=== PATIENT | male | born 1975 | race Caucasian/White ===

== ENCOUNTER 2018-06-16 10:31 | Emergency (ER) | payer SELFPAY ==
[~2018-06-16] VITALS: Ht 172.7 cm; Wt 73.3 kg
[2018-06-16 10:35] VITALS: Ht 172.7 cm; Wt 73.3 kg
[2018-06-16] MEDS ORDERED: BELLADONNA/PHENOBARBITAL TAB PO STA (14:32)
[2018-06-16] MEDS ORDERED: FAMOTIDINE 20 MG INJ IV STA (14:32)
[2018-06-16] MEDS ORDERED: LIDOCAINE/MYLANTA 40 ML BTL PO STA (14:32)
[2018-06-16] MEDS ORDERED: RANI150T5 PO (15:58)
[2018-06-16] MEDS ORDERED: SUCR1TAB56 PO (16:11)
[2018-06-16] MEDS ORDERED: OMEP20CA16 PO (16:11)
--- NOTE | 2018-06-16 16:14 | ERD ---
ER Documentation Chief Complaint Chief Complaint ABDOMINAL PAIN X 3 DAYS HPI During the patient's encounter translation services were utilized Language: Sinhala Source: In person 42-year-old male no significant past medical history who has been started on ranitidine in the past but self discontinued. The patient presents with several days of right upper quadrant and epigastric abdominal discomfort that is occasionally postprandial and worse with fatty foods. He also notes that the pain is slightly worse to touch and worse with rotational movement. No cough, shortness of breath or chest pain. No exertional symptoms. The pain is moderate at this time. No nausea vomiting or diarrhea. Prior history of appendectomy. ROS All systems reviewed and are negative except as per history of present illness. Medications Home Meds Active Scripts Sucralfate* (Carafate*) 1 Gm Tab, 1 GM PO WITH MEALS PRN for reflux symptoms, #20 TAB Prov:SANJAY SALES MD 06/16/18 Omeprazole* (Omeprazole*) 20 Mg Capsule.dr, 20 MG PO DAILY for 30 Days Prov:SANJAY SALES MD 06/16/18 Reported Medications Ranitidine Hcl* (Ranitidine Hcl*) 150 Mg Tablet, 150 MG PO Q12, #60 TAB 06/16/18 Allergies Allergies: Coded Allergies: No Known Allergy (Unverified , 06/16/18) PMhx/Soc History of Surgery: Yes (APPY) Anesthesia Reaction: No Hx Neurological Disorder: No Hx Respiratory Disorders: No Hx Cardiac Disorders: Yes (HIGH CHOLESTEROL) Hx Psychiatric Problems: No Hx Miscellaneous Medical Probl: Yes (GERD) Hx Alcohol Use: Yes (OCCASIONAL) Hx Substance Use: No Hx Tobacco Use: No Smoking Status: Never smoker FmHx Family History: No diabetes Physical Exam Vitals Vital Signs Date Temp Pulse Resp B/P (MAP) Pulse Ox O2 O2 Flow FiO2 Time Delivery Rate 06/16/18 97.8 93 18 132/72 97 10:35 (92) Physical Exam General: Well developed, well nourished, no acute distress Head: Normocephalic, atraumatic. Eyes: Pupils equally reactive, EOM intact ENT: Moist mucous membranes Neck: Supple, no lymphadenopathy Respiratory: Lungs clear bilaterally, no distress Cardiovascular: RRR, no murmurs, rubs, or gallops Abdominal: Soft, very mild suprapubic abdominal tenderness, negative Craft sign, no tenderness to McBurney's point, no pulsatile mass, non-distended, no peritoneal signs : Deferred MSK: No edema, no unilateral swelling, 5/5 strength Neurologic: Alert and oriented, moving all extremities, normal speech, no focal weakness, no cerebellar signs Skin: No rash Psych: Normal mood Result Diagram: 06/16/18 1439 06/16/18 1438 Results 24 hrs Laboratory Tests Test 06/16/18 14:38 06/16/18 14:39 Sodium Level 142 mmol/L Potassium Level 3.9 mmol/L Chloride Level 107 mmol/L Carbon Dioxide Level 26 mmol/L Anion Gap 9 Blood Urea Nitrogen 16 mg/dl Creatinine 0.73 mg/dl Est Glomerular Filtrat Rate mL/min > 60 mL/min Glucose Level 95 mg/dl Calcium Level 9.2 mg/dl Total Bilirubin 0.1 mg/dl Direct Bilirubin 0.00 mg/dl Indirect Bilirubin 0.1 mg/dl Aspartate Amino Transf (AST/SGOT) 27 IU/L Alanine Aminotransferase (ALT/SGPT) 33 IU/L Alkaline Phosphatase 90 IU/L Total Protein 7.5 g/dl Albumin 4.0 g/dl Globulin 3.50 g/dl Albumin/Globulin Ratio 1.14 Lipase 55 U/L White Blood Count 6.8 10^3/ul Red Blood Count 5.11 10^6/ul Hemoglobin 15.1 g/dl Hematocrit 45.3 % Mean Corpuscular Volume 88.6 fl Mean Corpuscular Hemoglobin 29.5 pg Mean Corpuscular Hemoglobin Concent 33.3 g/dl Red Cell Distribution Width 11.8 % Platelet Count 304 10^3/UL Mean Platelet Volume 9.7 fl Immature Granulocytes % 0.600 % Neutrophils % 56.7 % Lymphocytes % 32.7 % Monocytes % 6.9 % Eosinophils % 2.5 % Basophils % 0.6 % Nucleated Red Blood Cells % 0.0 /100WBC Immature Granulocytes # 0.040 10^3/ul Neutrophils # 3.9 10^3/ul Lymphocytes # 2.2 10^3/ul Monocytes # 0.5 10^3/ul Eosinophils # 0.2 10^3/ul Basophils # 0.0 10^3/ul Nucleated Red Blood Cells # 0.0 10^3/ul Current Medications Medications Dose Sig/Kiko Start Time Status Last (Trade) Ordered Route PRN Stop Time Admin Dose Reason Admin Famotidine 20 mg ONCE STAT 06/16/18 DC 06/16/18 (Pepcid Iv) IV 14:32 14:43 06/16/18 14:33 40 ml ONCE STAT 06/16/18 DC 06/16/18 Miscellaneous PO 14:32 14:43 Medication 06/16/18 14:33 (Gi Cocktail (2)) Belladonna/ 2 tab ONCE STAT 06/16/18 DC 06/16/18 Phenobarbital PO 14:32 14:44 () 06/16/18 14:33 Procedures/MDM EKG, MONITORS, & DIAGNOSTIC IMAGING: Ultrasound gallbladder: RPTAT: AA IMPRESSION: Unremarkable right upper quadrant abdominal ultrasound. LAB INTERPRETATION: I reviewed the laboratory testing and it shows no evidence of acute process MEDICAL DECISION MAKING: The patient's symptoms are very consistent with likely gastric process such as peptic ulcer disease versus reflux. Lower clinical concern for hepatobiliary obstruction, biliary colic, acute cholecystitis. The patient is a very benign abdominal exam without concern for bowel obstruction. Given the patient's location of pain and postprandial symptoms I do believe ultrasound of the gallbladder and liver testing would be appropriate. However if negative the patient can be safely discharged, started on the PPI and follow-up with a GI provider for endoscopy. No signs or symptoms concerning for vascular process, pneumonia, acute coronary syndrome. ER COURSE: * The patient was given a GI cocktail with improved symptomatology. Laboratory testing and diagnostic imaging is unrevealing. * At this point the patient can be safely discharged home with outpatient GI follow-up. Return precautions were discussed and understood. * Diet modification discussed. CONSULTATION: None DISPOSITION PLAN: The patient does not have an identifiable emergent medical condition that war rants inpatient hospitalization at this time. The patient is deemed safe for discharge with outpatient follow-up. We discussed follow up with the patient's primary care doctor within 24 to 48 hours as needed. We also discussed return to the emergency room for worsening symptoms or worsening condition. Outpatient referral: Gastroenterology Discharge Medications: Sucralfate, Prilosec Departure Diagnosis: Primary Impression: Epigastric abdominal pain Condition: Stable Patient Instructions: Gerd (Adult), Epigastric Pain (Uncertain Cause) Referrals: FRANKY HARRIS MD, [facility] () Usted se siu hecho un examen mdico de control que le indica que no est en zaina condicin que requiera tratamiento urgente en el Departamento de Emergencia. Un estudio ms profundo y el tratamiento de duong condicin pueden esperar sin ningn riesgo hasta que usted sea atendida/o en el consultorio de duong mdico o zaina clnica. Es responsabilidad suya arreglar zaina marissa para el seguimiento del kimani. MANEJO DE CONDICIONES NO URGENTES EN EL FUTURO 1) Si usted tiene un mdico de atencin primaria: Usted debera llamar a duong mdico de atencin primaria antes de venir al departamento de emergencia. Despus de las horas de consultorio, duong doctor o duong asociado/a est disponible por telfono. El mdico o enfermero de keli en el servicio telefnico puede asesorarle por kendall medio para atender el problema, o kimani contrario se puede programar zaina marissa. 2) Si usted no tiene un mdico de atencin primaria: Llame al mdico o clnica de referencia que aparece abajo steve las horas de consultorio para hacer zaina marissa para que le vean. CLINICAS: [facility] [id number] [facility] [phone] [facility] [phone] [address] [facility]. [facility] [phone] [facility] [place] [id number] [phone] [facility]. [phone] [address] [facility]. [facility] () Usted se siu hecho un examen mdico de control que le indica que no est en zaina condicin que requiera tratamiento urgente en el Departamento de Emergencia. Un estudio ms profundo y el tratamiento de duong condicin pueden esperar sin ningn riesgo hasta que usted sea atendida/o en el consultorio de duong mdico o zaina c lnica. Es responsabilidad suya arreglar zaina marissa para el seguimiento del kimani. MANEJO DE CONDICIONES NO URGENTES EN EL FUTURO 1) Si usted tiene un mdico de atencin primaria: Usted debera llamar a duong mdico de atencin primaria antes de venir al departamento de emergencia. Despus de las horas de consultorio, duong doctor o duong asociado/a est disponible por telfono. El mdico o enfermero de keli en el servicio telefnico puede asesorarle por kendall medio para atender el problema, o kimani contrario se puede programar zaina marissa. 2) Si usted no tiene un mdico de atencin primaria: Llame al mdico o condado institucions de referencia que aparece abajo steve las horas de consultorio para hacer zaina marissa para que le vean. SI USTED NO PUEDE PAGAR PARA JENNIFER UN MEDICO puede ir a: [facility] [phone] [place] [address] [facility] [address] [place] [address] [facility] [address] [place] [address] [address] [facility] [address] [place], [place] [id number] Additional Instructions: Llame al doctor nombrado abajo (Referral Sources) MAANA y shalom zaina MARISSA PARA DENTRO DE ZAINA SEMANA. Dgale a la secretaria que nosotros le instruimos hacer esta marissa.Avise o llame si duong condicin se empeora antes de la marissa. SANJAY ASLES MD Jun 16, 2018 16:14
[2018-06-16 17:15] VITALS: BP 127/68; PULSE 58; RESP 16
== END 2018-06-16 17:20 | disposition home or self-care (01) ==
LOC: E/R 10:31
DX: R10.13 Epigastric pain (principal)
CPT/HCPCS: 36415; 76705; 80053; 83690; 85025; 96374